=== PATIENT | male | born 1985 | race African-American/Black ===

== ENCOUNTER 2019-09-24 18:43 | Emergency (ER) | payer MEDICAID ==
[~2019-09-24] VITALS: Ht 190.5 cm; Wt 140.2 kg
[2019-09-24 18:54] VITALS: BP 155/89
--- NOTE | 2019-09-24 19:00 | NUR ---
ambulated to bed 11 with steady gait.
--- NOTE | 2019-09-24 19:10 | NUR ---
33 year old male presents to the emergency department with c/o anxiety and penile pain x 2 weeks. pt constantly pacing and unable to stay in one place. AAO x 4, gcs 15. states not able to sleep fully x 2 weeks. upon observation, seen possible penile rashes located inferior to the shaft. states having LT testicular pain. DEMARIO Campbell made aware of pt situation. Awaiting MSE. pmhx: anxiety, MDD nkda
[2019-09-24] MEDS ORDERED: LORazepam 2 MG/ML VIAL IM ONE (19:15)
--- NOTE | 2019-09-24 19:20 | NUR ---
DEMARIO Campbell made aware of pt status and assessing pt.
[2019-09-24] MEDS ORDERED: KETOROLAC 30 MG/ML VIAL ONE ×2 (19:22→20:39)
[2019-09-24] MEDS ORDERED: KETOROLAC 30 MG/ML VIAL IM ONE ×2 (19:25→20:50)
--- NOTE | 2019-09-24 19:56 | NUR ---
DEMARIO VALENZUELA EXAMINING PATIENT
[2019-09-24 20:44] VITALS: BP 123/75
--- NOTE | 2019-09-24 20:46 | NUR ---
Patient discharged with v/s stable. Written and verbal after care instructions given and explained. Patient alert, oriented and verbalized understanding of instructions. Ambulatory with steady gait. All questions addressed prior to discharge. ID band removed. Patient advised to follow up with PMD. Rx of ACYCLOVIR AND ATIVAN given. Patient educated on indication of medication including possible reaction and side effects. Opportunity to ask questions provided and answered.
== END 2019-09-24 20:46 | disposition home or self-care (01) ==
LOC: MED 18:43
DX: F41.9 Anxiety disorder, unspecified (principal); A60.00 Herpesviral infection of urogenital system, unspecified
CPT/HCPCS: 81002; 96372; 99284; J1885; J2060

== ENCOUNTER 2019-09-25 04:24 | Emergency (ER) | payer MEDICAID ==
[~2019-09-25] VITALS: Ht 190.5 cm; Wt 141.5 kg
[2019-09-25 04:48] VITALS: BP 150/79
--- NOTE | 2019-09-25 04:52 | NUR ---
PT TAKEN TO BED 06 WITH STEADY GAIT.
--- NOTE | 2019-09-25 04:55 | NUR ---
Dr. Aguirre examining patient.
--- NOTE | 2019-09-25 05:05 | NUR ---
PT BIB self C/O painful lesions to genitals, pt seen here yesterday and diagnosed with herpes. PT reports burning pain radiating through body making him unable to sleep, causing axiety. Dr Aguirre at bedside for PT examination PMH: asthma
[2019-09-25] MEDS: KETOROLAC 30 MG/ML VIAL IM ONE (05:38)
[2019-09-25] MEDS: ACYCLOVIR 200 MG CAP PO ONE (05:39)
[2019-09-25] MEDS: HYDROcodone/APAP 5/325 MG 1 TAB TAB PO ONE (05:39)
[2019-09-25 05:57] VITALS: BP 145/79
--- NOTE | 2019-09-25 05:57 | NUR ---
Patient discharged with v/s stable. Written and verbal after care instructions given and explained. Patient alert, oriented and verbalized understanding of instructions. Ambulatory with steady gait. All questions addressed prior to discharge. ID band removed. Patient advised to follow up with PMD. Rx of acyclovir, norco, narcan given. Patient educated on indication of medication including possible reaction and side effects. Opportunity to ask questions provided and answered.
== END 2019-09-25 05:57 | disposition home or self-care (01) ==
LOC: MED 04:24
DX: R21 Rash and other nonspecific skin eruption (principal); F41.9 Anxiety disorder, unspecified; J45.909 Unspecified asthma, uncomplicated
CPT/HCPCS: 96372; 99283; J1885